=== PATIENT | male | born 1940 | race Caucasian/White ===

== ENCOUNTER → 2016-08-02 07:35 | Outpatient (CLI) | payer MEDICARE, BC | END | disposition home or self-care (01) | LOC: D.CT 07:35 | DX: R79.89 Other specified abnormal findings of blood chemistry (principal); R93.8 Abnormal findings on diagnostic imaging of other specified body structures ==

== ENCOUNTER 2020-09-12 14:18 | Inpatient (IN) | payer MEDICARE, OTHER ==
[~2020-09-12] VITALS: Ht 177.8 cm; Wt 99.3 kg
[2020-09-12] MEDS ORDERED: CARDURA2 MG PO (14:27)
[2020-09-12] MEDS ORDERED: TORSEMIDE20 MG PO (14:27)
[2020-09-12] MEDS ORDERED: DILTIAZEM 24HR120 M3 PO (14:27)
[2020-09-12 15:21] LABS: BASOPHILS 0.7 % (0-2); HEMATOCRIT 26.5 % (42.0-54.0); LYMPHOCYTES 24.4 % (15-50); MCH 29.2 pg (26.0-34.0); MCV 86.1 fL (80.0-100.0); MEAN PLATELET VOLUME 8.1 fL (7.4-10.4); MONOCYTES 4.9 % (2-11); PLATELET COUNT 130 10x3/uL (130-400); RBC 3.08 10x6/uL (4.20-6.10); RDW 14.2 % (11.5-14.5); WBC 5.3 10x3/uL (4.8-10.8)
[2020-09-12 15:35] LABS: ANION GAP 16.1 mmol/L (8-16); CALCIUM 8.9 mg/dL (8.5-10.1); CARBON DIOXIDE 22.5 mmol/L (21.0-32.0); CREATININE - SERUM 5.2 mg/dL (0.6-1.3); POTASSIUM - SERUM 5.6 mmol/L (3.5-5.1)
[2020-09-12 15:41] LABS: ALBUMIN 3.8 g/dL (3.4-5.0); BILIRUBIN - TOTAL 0.28 mg/dL (0.2-1.3); PROTEIN - SERUM 7.8 g/dL (6.4-8.2)
[2020-09-12 16:11] LABS: COMPLEMENT C4 28.3 mg/dL (17.4-52.2)
[2020-09-12 17:40] LABS: BACTERIA FEW HPF (<MOD); BILIRUBIN NEGATIVE (NEGATIVE); KETONE NEGATIVE mg/dL (< 1+); NITRITE NEGATIVE (NEGATIVE); PH 5.5 (5.0-8.0); UROBILINOGEN NORMAL mg/dL (< 2); WHITE CELLS - URINE 6 HPF (0-1)
[2020-09-12 18:13] VITALS: BP 152/62
--- NOTE | 2020-09-12 18:28 | NUR ---
NS INFUSION STOPPED IN ER AT 1850 AND CONT'D IN HOSPITAL
--- NOTE | 2020-09-12 18:45 | NUR ---
PT FROM ER VIA WHEELCHAIR, PT AAO X 4, RESP EVEN AND UNLABORED, NO DISTRESS NOTED, CL IN REACH, SR UP X 2.
[2020-09-13 00:52] VITALS: BP 146/68
[2020-09-13 02:48] VITALS: BP 146/69; BMI 30.6
[2020-09-13 04:30] LABS: CREATININE - URINE 54.9 mg/dL (30-125); PRO/CRE RATIO URINE 1.3 mg/g; PROTEIN - URINE 72.7 mg/dL (0.0-11.9)
[2020-09-13 05:20] VITALS: BP 140/70
[2020-09-13 06:58] LABS: INR 1.29 (0.85-1.17); PROTIME 14.9 SECONDS (11.6-15.0)
[2020-09-13 07:09] LABS: BASOPHILS 0.6 % (0-2); EOSINOPHILS 3.6 % (0-7); HEMATOCRIT 23.8 % (42.0-54.0); HEMOGLOBIN 8.1 g/dL (13.5-17.5); LYMPHOCYTES 29.7 % (15-50); MCH 29.6 pg (26.0-34.0); MCHC 34.1 g/dL (31.0-37.0); MCV 86.8 fL (80.0-100.0); MONOCYTES 6.6 % (2-11); NEUTROPHILS 59.5 % (40-80); PLATELET COUNT 105 10x3/uL (130-400); RBC 2.74 10x6/uL (4.20-6.10); RDW 14.1 % (11.5-14.5); WBC 4.9 10x3/uL (4.8-10.8)
[2020-09-13 07:14] LABS: ANION GAP 19.3 mmol/L (8-16); CALCIUM 8.4 mg/dL (8.5-10.1); CARBON DIOXIDE 18.9 mmol/L (21.0-32.0); CREATININE - SERUM 4.8 mg/dL (0.6-1.3); MAGNESIUM - SERUM 1.8 mg/dL (1.8-2.4); PHOSPHOROUS 5.4 mg/dL (2.5-4.9); POTASSIUM - SERUM 5.2 mmol/L (3.5-5.1)
--- NOTE | 2020-09-13 07:58 | NUR ---
AM ROUNDING DONE WITH FANNY STILL IN STREET CLOTHES, DOES NOT WANT TO PLACE GOWN ON UNTIL TIME FOR PROCEDURE. NPO STATUS AT THIS TIME. ON HEART MONITOR SHOWING SR, HR 70. RIGHT FA PIV SEEN WITH NS INFUSING AT 75 CC/HR, ORANGE SWAB CAPS IN PLACE. ON ROOM AIR. DENIES NEEDS AT THIS TIME. WILL MONITOR.
[2020-09-13 09:00] VITALS: BP 153/79
--- NOTE | 2020-09-13 10:16 | NUR ---
TO IR VIA BED.
--- NOTE | 2020-09-13 12:42 | NUR ---
NO BLEEDING AT BIOPSY SITE. PT VS STABLE 136/58, 71, 99% RA, 9 RESP. PT SLEEPING AT THIS TIME, BUT WILL RESPOND TO NAME. NO DISTRESS NOTED. WILL CONTINUE TO MONITOR.
--- NOTE | 2020-09-13 14:08 | NUR ---
1355- AAOX4. SUPINE. URINATED IN URINAL 80 ML OUTPUT. VS- 141/60 HR 79 RR 12 O2 SAT 98 ON ROOM AIR. DRESSING CLEAN. NO SWELLING OR DISCOLORATION NOTED AROUND BIOPSY SITE.
--- NOTE | 2020-09-13 15:17 | NUR ---
Resting quietly. Denies pain. No discoloration or swelling noted around biopsy site. 100 ml urine output. Breathing non labored. Skin PWD. VS-133/64 HR 78 RR 12 O2 sat 98 on RA.
--- NOTE | 2020-09-13 15:39 | NUR ---
transported to ops to continue monitoring and waiting on ICU room to become available.
--- NOTE | 2020-09-13 16:01 | NUR ---
PATIENT BROUGHT TO OUTPATIENT DEPARTMENT AWAITING ICU BED. ON ARRIVAL, PATIENT NAUSEATED, ZOFRAN GIVEN ORDERED
--- NOTE | 2020-09-13 16:02 | NUR ---
VS FOLLOWS ON ARRIVAL-125/98, 92. SAT 98% DRESSING DRY AND INTACT, NO BLEEDING NOTED
[2020-09-13 16:40] LABS: BASOPHILS 0.5 % (0-2); EOSINOPHILS 0.9 % (0-7); HEMATOCRIT 25.2 % (42.0-54.0); HEMOGLOBIN 8.5 g/dL (13.5-17.5); LYMPHOCYTES 13.6 % (15-50); MCH 29.2 pg (26.0-34.0); MCHC 33.8 g/dL (31.0-37.0); MCV 86.3 fL (80.0-100.0); MEAN PLATELET VOLUME 7.9 fL (7.4-10.4); MONOCYTES 4.6 % (2-11); NEUTROPHILS 80.4 % (40-80); PLATELET COUNT 124 10x3/uL (130-400); RBC 2.92 10x6/uL (4.20-6.10)
[2020-09-13 16:55] LABS: WBC 6.4 10x3/uL (4.8-10.8)
[2020-09-13 16:57] LABS: INR 1.28 (0.85-1.17); PROTIME 14.8 SECONDS (11.6-15.0)
--- NOTE | 2020-09-13 17:32 | NUR ---
RETURNS TO ROOM WITH DRY INTACT DRESSING TO BACK/RIGHT SIDE AREA. DENIES NEEDS.
[2020-09-13 17:51] VITALS: BP 148/64
--- NOTE | 2020-09-13 18:20 | NUR ---
LATE ENTRY: SEE BLOOD PRODUCT ADMINISTRATION SHEET FOR DETAIL OF PLATELET ADMINISTRATION THIS IS IN REFERENCE TO UNIT #1 [id number] PT TOLERATED WELL WITHOUT ANY DIFFICULTY
--- NOTE | 2020-09-13 18:23 | NUR ---
UNIT #2 OF PLATELET ADMINISTRATION SEE BLOOD PRODUCT ADMINISTRATION SHEET FOR DETAILS BEGAN ADMINISTRATION @ [id number]
--- NOTE | 2020-09-13 19:30 | NUR ---
PT IN BED, AAO X 4, RESP EVEN AND UNLABORED, NO DISTRESS NOTED, CL IN REACH, SR UP X 2, DRSG TO BACK CLEAN AND DRY AT THIS TIME.
[2020-09-13 21:11] LABS: BASOPHILS 0.4 % (0-2); EOSINOPHILS 0.7 % (0-7); HEMATOCRIT 22.8 % (42.0-54.0); HEMOGLOBIN 7.8 g/dL (13.5-17.5); LYMPHOCYTES 16.9 % (15-50); MCH 29.1 pg (26.0-34.0); MCHC 34.2 g/dL (31.0-37.0); MCV 85.3 fL (80.0-100.0); MEAN PLATELET VOLUME 7.3 fL (7.4-10.4); PLATELET COUNT 146 10x3/uL (130-400); RBC 2.67 10x6/uL (4.20-6.10); RDW 14.2 % (11.5-14.5); WBC 6.4 10x3/uL (4.8-10.8)
[2020-09-14] VITALS (9 sets, daily range): BP systolic 136–172; BP diastolic 59–88; Ht 177.8 cm; Wt 99.3 kg
--- NOTE | 2020-09-14 04:07 | NUR ---
I have reviewed this patient and I concur with the Shift Assessment completed by the Licensed Practical Nurse today this shift.
[2020-09-14 06:30] LABS: BASOPHILS 0.3 % (0-2); HEMATOCRIT 21.6 % (42.0-54.0); MCH 29.9 pg (26.0-34.0); MCHC 34.8 g/dL (31.0-37.0); MCV 86.1 fL (80.0-100.0); MEAN PLATELET VOLUME 8.6 fL (7.4-10.4); MONOCYTES 6.7 % (2-11); PLATELET COUNT 137 10x3/uL (130-400); RBC 2.51 10x6/uL (4.20-6.10); RDW 14.1 % (11.5-14.5); WBC 6.4 10x3/uL (4.8-10.8)
[2020-09-14 06:54] LABS: HEMOGLOBIN 7.5 g/dL (13.5-17.5)
[2020-09-14 06:57] LABS: % SATURATION 14 % (15-55); IRON 36 ug/dl (35-150); TOTAL IRON BIND CAPACITY 241 ug/dl (260-445); UNSAT IRON BIND CAPACITY 205 ug/dl (150-375)
[2020-09-14 07:00] LABS: ANION GAP 16.2 mmol/L (8-16); CALCIUM 8.5 mg/dL (8.5-10.1); CARBON DIOXIDE 21.7 mmol/L (21.0-32.0); CREATININE - SERUM 5.1 mg/dL (0.6-1.3); MAGNESIUM - SERUM 1.7 mg/dL (1.8-2.4); POTASSIUM - SERUM 4.9 mmol/L (3.5-5.1)
--- NOTE | 2020-09-14 08:50 | NUR ---
AM ROUNDING DONE WITH PATIENT RETURNING FROM CT VIA WHEELCHAIR. IV FLUIDS TO LEFT FA OF NS INFUSING AT 75 CC/HR. ON HEART MONITOR SHOWING SR, HR 99. ON ROOM AIR. DRESSING TO BACK IS C/D/I WITH NO BLEEDING SEEN. BILATERAL SCD'S ON AND IN USE. CALL LIGHT IN USE.
[2020-09-14 09:12] LABS: ANA REFLEX - DIRECT Negative (Negative)
--- NOTE | 2020-09-14 10:26 | NUR ---
FIRST UNIT OF BLOOD STARTED TRANSFUSING AT 100 CC/HR.
--- NOTE | 2020-09-14 12:40 | NUR ---
OT NOTE: ATTEMPTED EVAL HOWEVER PT GETTING BLOOD. WILL ATTEMPT LATER FRANKI KENDRICK, OTR/L
--- NOTE | 2020-09-14 12:57 | NUR ---
BLOOD TRANSFUSION COMPLETED WITH NO REACTION.
[2020-09-14 15:12] LABS: ANTIMYELOPEROXIDASE 42.2 U/mL (0.0-9.0); ANTIPROTEINASE 3 (PR-3) <3.5 U/mL (0.0-3.5)
[2020-09-14 18:55] LABS: HEMATOCRIT 24.8 % (42.0-54.0); HEMOGLOBIN 8.4 g/dL (13.5-17.5)
[2020-09-15 02:22] VITALS: BP 151/65
[2020-09-15 05:22] VITALS: BP 155/71
[2020-09-15 06:19] LABS: BASOPHILS 0.1 % (0-2); EOSINOPHILS 0.1 % (0-7); HEMATOCRIT 23.7 % (42.0-54.0); HEMOGLOBIN 8.3 g/dL (13.5-17.5); LYMPHOCYTES 7.5 % (15-50); MCH 30.2 pg (26.0-34.0); MCHC 34.9 g/dL (31.0-37.0); MCV 86.7 fL (80.0-100.0); MEAN PLATELET VOLUME 8.6 fL (7.4-10.4); MONOCYTES 1.3 % (2-11); PLATELET COUNT 121 10x3/uL (130-400); RBC 2.74 10x6/uL (4.20-6.10); RDW 14.2 % (11.5-14.5); WBC 7.7 10x3/uL (4.8-10.8)
[2020-09-15 08:23] LABS: ANION GAP 22.6 mmol/L (8-16); CALCIUM 8.4 mg/dL (8.5-10.1); CARBON DIOXIDE 16.3 mmol/L (21.0-32.0); CREATININE - SERUM 5.3 mg/dL (0.6-1.3); MAGNESIUM - SERUM 1.8 mg/dL (1.8-2.4); PHOSPHOROUS 5.2 mg/dL (2.5-4.9); POTASSIUM - SERUM 4.9 mmol/L (3.5-5.1)
[2020-09-15 09:25] VITALS: BP 146/59
[2020-09-15 11:26] VITALS: BP 165/74
[2020-09-15 15:12] LABS: ANCA - ANTIMYELOPEROXIDASE 23.5 U/mL (0.0-9.0); ANCA - ANTIPROTEINASE 3 <3.5 U/mL (0.0-3.5); ANCA - ATYPICAL <1:20 titer (Neg:<1:20); ANCA - CYTOPLASMIC <1:20 titer (Neg:<1:20)
[2020-09-15 20:51] VITALS: BP 132/49
[2020-09-16 01:50] VITALS: BP 121/35
[2020-09-16 05:41] VITALS: BP 139/89
[2020-09-16 08:34] LABS: BASOPHILS 0 % (0-2); EOSINOPHILS 0 % (0-7); HEMATOCRIT 24.5 % (42.0-54.0); HEMOGLOBIN 8.4 g/dL (13.5-17.5); LYMPHOCYTES 6.5 % (15-50); MCHC 34.2 g/dL (31.0-37.0); MCV 87.7 fL (80.0-100.0); MEAN PLATELET VOLUME 8.6 fL (7.4-10.4); NEUTROPHILS 91.5 % (40-80); PLATELET COUNT 128 10x3/uL (130-400); RBC 2.79 10x6/uL (4.20-6.10); RDW 14.4 % (11.5-14.5)
[2020-09-16 09:04] LABS: WBC 10.2 10x3/uL (4.8-10.8)
[2020-09-16 09:05] LABS: CALCIUM 8.1 mg/dL (8.5-10.1); CARBON DIOXIDE 17.7 mmol/L (21.0-32.0); CREATININE - SERUM 5.2 mg/dL (0.6-1.3); MAGNESIUM - SERUM 1.8 mg/dL (1.8-2.4); PHOSPHOROUS 5.4 mg/dL (2.5-4.9); POTASSIUM - SERUM 4.7 mmol/L (3.5-5.1)
[2020-09-16 09:11] VITALS: BP 138/61
[2020-09-16 16:39] VITALS: BP 132/64
--- NOTE | 2020-09-16 20:00 | NUR ---
ALERT/ORIENTED AND RESTING IN BED. SMILING, STATES TOLD HIM HE MAY GET TO GO HOME ON FRIDAY. DENIES PAIN OR DISCOMFORT. VERY PLEASANT TO INTERACT WITH. NONLABORED RESPIRATIONS ON ROOM AIR. IV TO RFA WITH NS @ 75ML/HR. SR PER TELEMETRY. CALL LIGHT IN REACH.
[2020-09-16 20:48] VITALS: BP 129/55
[2020-09-17 01:45] VITALS: BP 143/56
[2020-09-17 05:35] VITALS: BP 160/75
--- NOTE | 2020-09-17 06:00 | NUR ---
PT RESTING WELL THROUGH THE NIGHT. NO CHANGE FROM INITIAL SHIFT ASSESSMENT. IVF INFUSING. CALL LIGHT IN REACH.
[2020-09-17 07:41] LABS: BASOPHILS 0.1 % (0-2); EOSINOPHILS 0 % (0-7); HEMOGLOBIN 8.4 g/dL (13.5-17.5); LYMPHOCYTES 5.6 % (15-50); MCH 29.7 pg (26.0-34.0); MCHC 33.6 g/dL (31.0-37.0); MCV 88.4 fL (80.0-100.0); MEAN PLATELET VOLUME 8.7 fL (7.4-10.4); MONOCYTES 1.7 % (2-11); NEUTROPHILS 92.6 % (40-80); PLATELET COUNT 136 10x3/uL (130-400); RBC 2.83 10x6/uL (4.20-6.10); RDW 14.6 % (11.5-14.5); WBC 9.4 10x3/uL (4.8-10.8)
[2020-09-17 08:01] VITALS: BP 145/62
--- NOTE | 2020-09-17 08:01 | NUR ---
PT RECEIVED AWAKE AND ALERT, NO COMPLAINTS. HOPING TO GO HOME TODAY.
[2020-09-17 08:07] LABS: ANION GAP 20.8 mmol/L (8-16); CALCIUM 8.1 mg/dL (8.5-10.1); CARBON DIOXIDE 16.8 mmol/L (21.0-32.0); CREATININE - SERUM 5.1 mg/dL (0.6-1.3); MAGNESIUM - SERUM 1.8 mg/dL (1.8-2.4); PHOSPHOROUS 5.9 mg/dL (2.5-4.9); POTASSIUM - SERUM 4.6 mmol/L (3.5-5.1)
[2020-09-17] MEDS ORDERED: PREDNISONE20 MG PO (09:26)
[2020-09-17] MEDS ORDERED: PEPCID PO (09:26)
--- NOTE | 2020-09-17 10:25 | NUR ---
DISCHARGE INSTRUCTIONS REVIEWED AND SIGNED. FAMILY IN ROOM FOR TRANSPORT. IV REMOVED. TELEMETRY RETURNED TO ICU.
--- NOTE | 2020-09-17 19:13 | MORECARE ---
CASE MANAGEMENT DISCHARGE SUMMARY PATIENT: DUSTIN NELSON UNIT: [id number] ADM DATE: 09/12/20 AGE: 80 : 40 SEX: M ROOM/BED: D.2134 AUTHOR: KADEDOC PHYSICIAN: REFERRING PHYSICIAN: BELTRAN OROPEZA MD DATE OF SERVICE: 09/17/20 Case Management Discharge Planning Summary DCP REVIEW SUMMARY ANTICIPATED D/C DATE: 09/17/2020 EXPECTED LOS : 5 CASE STATUS: DCP Initiated INITIAL REVIEW: 09/12/2020 INITIAL REVIEWER: Kamari Brambila FINAL DISCHARGE DISPOSITION: : FINAL REVIEWER: FINAL REVIEW DATE: DCP Focus Questions & Answers DCP Evaluation QUESTION: ANSWER Patient gives permission to discuss discharge plans with: (name, relationship and number) : Antonietta pacheco, Patient's ability to cope with chronic illness : d. No chronic illness Patient's current cognitive status: : *Oriented to person, place, situation, time and present Family / Caregiver's ability to cope with chronic illness: : a. Adequate (ability to meet patient's medical needs, ensures patient attends medical appts.) Patient and/or caregiver agree upon recommended discharge plan? : Yes Physical Status: : Independent with ADL's Family / Caregiver's ability to cope with chronic illness: : a. Adequate (ability to meet patient's medical needs, ensures patient attends medical appts.) Functional screen assessment: : Basic needs can adequately be met by self Does the patient have the ability to pay for or attain post discharge needs / services? : Yes Living Arrangements: : Home with Spouse/Significant Other Is there a likelihood that the patient will require additional services to return to the preadmission environment? : No Equipment needed for post hospitalization: : None Baseline cognitive status: : *Oriented to person, place, situation, time and present Patient with capacity for self-care or can be cared for in same environment as prior to hospitalization? : Yes Physical environment modification needed / anticipated for discharge: : No Medication Management: : Patient states can afford medications Medication Management: : Patient states can read and understand medication labels Pharmacy name(s): : [facility] on [facility] Does Patient have transportation to get home and to follow-up medical appointments when discharged from the hospital? : Yes Would patient like to participate in any Care Coordination programs (if applicable): : Not applicable Does the patient have electricity at home? : Yes Does the patient have running water in their house? : Yes Equipment in use: : None Mental health screen: : No mental health history DCP Re-evaluation QUESTION: ANSWER Would patient like to participate in any Care Coordination programs (if applicable): : Not applicable PATIENT: DUSTIN NELSON ENCOUNTER: [id number] MEDICAL RECORD#: [id number] ADMISSION DATE: 09/12/2020 DISCHARGE DATE: 09/17/2020 ATTENDING MD: YARY: AGE: 80 MARITAL STATUS: M DC PLAN ID: [id number] FACILITY: [facility] PRINTED ON: 09/17/20 19:13 CT All edits/amendments must be made on the electronic document DICTATION DATE: 09/17/201912 BAKER BENCH: WILLIAM 09/17/201912 RPT#: [id number] DC DATE:09/17/20 STATUS: DIS IN [facility] [address] [place] [address] END OF REPORT
--- NOTE | 2020-09-17 19:24 | MORECARE ---
CASE MANAGEMENT DISCHARGE SUMMARY PATIENT: DUSTIN FLORENTINO UNIT: [id number] ADM DATE: 09/12/20 AGE: 80 : 40 SEX: M ROOM/BED: D.1474 AUTHOR: KADE,DOC PHYSICIAN: REFERRING PHYSICIAN: BELTRAN OROPEZA MD DATE OF SERVICE: 09/17/20 Case Management Discharge Planning Summary COMMENTS ENTERED DATE: 09/17/20 19:09 CT COMMENT TYPE: Discharge Planning REVIEWER: Kamari Brambila CM met with patient to complete DC plan and to evaluate needs. Patient lives independently with his , Antonietta Florentino, . Patient stated that his home is safe and has electricity and running water. Patient stated that he is able to manage entering his home and moving about without difficulty. Patient stated that he has no problems paying for medications and he fills his medications at [facility] on [facility]. Patient stated that his primary care physician is Dr. Hilliard. At discharge, the patient plans to return place and feels this is a safe discharge. CM discussed availability of home health, rehab services, and medical equipment. Patient declined HHS, SNF, IPR, and DME. Patient voiced no other needs at this time and is satisfied with DC plan. DC IMM delivered, explained, signed by the patient, and placed in chart. Signed form also left with the patient. CM will continue to follow and will assist as needed with dc plans/needs. MIP REVIEW SUMMARY ANTICIPATED D/C DATE: 09/17/2020 EXPECTED LOS : 5 CASE STATUS: DCP Initiated INITIAL REVIEW: 09/12/2020 INITIAL REVIEWER: Kamari Brambila FINAL DISCHARGE DISPOSITION: : FINAL REVIEWER: FINAL REVIEW DATE: MIP Focus Questions & Answers DCP Evaluation QUESTION: ANSWER Patient gives permission to discuss discharge plans with: (name, relationship and number) : , Antonietta Florentino, Patient's ability to cope with chronic illness : d. No chronic illness Patient's current cognitive status: : *Oriented to person, place, situation, time and present Family / Caregiver's ability to cope with chronic illness: : a. Adequate (ability to meet patient's medical needs, ensures patient attends medical appts.) Patient and/or caregiver agree upon recommended discharge plan? : Yes Physical Status: : Independent with ADL's Family / Caregiver's ability to cope with chronic illness: : a. Adequate (ability to meet patient's medical needs, ensures patient attends medical appts.) Functional screen assessment: : Basic needs can adequately be met by self Does the patient have the ability to pay for or attain post discharge needs / services? : Yes Living Arrangements: : Home with Spouse/Significant Other Is there a likelihood that the patient will require additional services to return to the preadmission environment? : No Equipment needed for post hospitalization: : None Baseline cognitive status: : *Oriented to person, place, situation, time and present Patient with capacity for self-care or can be cared for in same environment as prior to hospitalization? : Yes Physical environment modification needed / anticipated for discharge: : No Medication Management: : Patient states can afford medications Medication Management: : Patient states can read and understand medication labels Pharmacy name(s): : [facility] on [facility] Does Patient have transportation to get home and to follow-up medical appointments when discharged from the hospital? : Yes Would patient like to participate in any Care Coordination programs (if applicable): : Not applicable Does the patient have electricity at home? : Yes Does the patient have running water in their house? : Yes Equipment in use: : None Mental health screen: : No mental health history DCP Re-evaluation QUESTION: ANSWER Would patient like to participate in any Care Coordination programs (if applicable): : Not applicable PATIENT: DUSTIN FLORENTINO ENCOUNTER: [id number] MEDICAL RECORD#: [id number] ADMISSION DATE: 09/12/2020 DISCHARGE DATE: 09/17/2020 ATTENDING MD: YARY: AGE: 80 MARITAL STATUS: M DC PLAN ID: [id number] FACILITY: [facility] PRINTED ON: 09/17/20 19:23 CT All edits/amendments must be made on the electronic document DICTATION DATE: 09/17/201922 TWO NEEDLE MACHINE OPERATOR: WILLIAM 09/17/201922 RPT#: [id number] DC DATE:09/17/20 STATUS: DIS IN [facility] [address] [place] [address] END OF REPORT
--- NOTE | 2020-09-19 18:36 | MORECARE ---
CASE MANAGEMENT DISCHARGE SUMMARY PATIENT: DUSTIN FLORENTINO UNIT: [id number] ADM DATE: 09/12/20 AGE: 80 : 40 SEX: M ROOM/BED: D.2134 AUTHOR: KADE,DOC PHYSICIAN: REFERRING PHYSICIAN: BELTRAN OROPEZA MD DATE OF SERVICE: 09/19/20 Case Management Discharge Planning Summary COMMENTS ENTERED DATE: 09/17/20 19:09 CT COMMENT TYPE: Discharge Planning REVIEWER: Kamari Brambila CM met with patient to complete DC plan and to evaluate needs. Patient lives independently with his , Antonietta Florentino, . Patient stated that his home is safe and has electricity and running water. Patient stated that he is able to manage entering his home and moving about without difficulty. Patient stated that he has no problems paying for medications and he fills his medications at [facility] on [facility]. Patient stated that his primary care physician is Dr. Hilliard. At discharge, the patient plans to return place and feels this is a safe discharge. CM discussed availability of home health, rehab services, and medical equipment. Patient declined HHS, SNF, IPR, and DME. Patient voiced no other needs at this time and is satisfied with DC plan. DC IMM delivered, explained, signed by the patient, and placed in chart. Signed form also left with the patient. CM will continue to follow and will assist as needed with dc plans/needs. DCP REVIEW SUMMARY ANTICIPATED D/C DATE: 09/17/2020 EXPECTED LOS : 5 CASE STATUS: DCP Initiated INITIAL REVIEW: 09/12/2020 INITIAL REVIEWER: Kamari Brambila FINAL DISCHARGE DISPOSITION: : FINAL REVIEWER: FINAL REVIEW DATE: DCP Focus Questions & Answers DCP Evaluation QUESTION: ANSWER Patient and/or caregiver agree upon recommended discharge plan? : Yes Family / Caregiver's ability to cope with chronic illness: : a. Adequate (ability to meet patient's medical needs, ensures patient attends medical appts.) Patient's current cognitive status: : *Oriented to person, place, situation, time and present Patient's ability to cope with chronic illness : d. No chronic illness Patient gives permission to discuss discharge plans with: (name, relationship and number) : , Antonietta Florentino, Does the patient have the ability to pay for or attain post discharge needs / services? : Yes Functional screen assessment: : Basic needs can adequately be met by self Family / Caregiver's ability to cope with chronic illness: : a. Adequate (ability to meet patient's medical needs, ensures patient attends medical appts.) Physical Status: : Independent with ADL's Equipment needed for post hospitalization: : None Is there a likelihood that the patient will require additional services to return to the preadmission environment? : No Living Arrangements: : Home with Spouse/Significant Other Patient with capacity for self-care or can be cared for in same environment as prior to hospitalization? : Yes Baseline cognitive status: : *Oriented to person, place, situation, time and present Physical environment modification needed / anticipated for discharge: : No Medication Management: : Patient states can read and understand medication labels Medication Management: : Patient states can afford medications Pharmacy name(s): : [facility] on [facility] Does Patient have transportation to get home and to follow-up medical appointments when discharged from the hospital? : Yes Would patient like to participate in any Care Coordination programs (if applicable): : Not applicable Does the patient have electricity at home? : Yes Does the patient have running water in their house? : Yes Equipment in use: : None Mental health screen: : No mental health history DCP Re-evaluation QUESTION: ANSWER Would patient like to participate in any Care Coordination programs (if applicable): : Not applicable PATIENT: DUSTIN FLORENTINO ENCOUNTER: [id number] MEDICAL RECORD#: [id number] ADMISSION DATE: 09/12/2020 DISCHARGE DATE: 09/17/2020 ATTENDING MD: YARY: AGE: 80 MARITAL STATUS: M DC PLAN ID: [id number] FACILITY: [facility] PRINTED ON: 09/19/20 18:36 CT All edits/amendments must be made on the electronic document DICTATION DATE: 09/19/201835 OFFICE SERVICE COORDINATOR: WILLIAM 09/19/201835 RPT#: [id number] DC DATE:09/17/20 STATUS: DIS IN [facility] [address] [place] [address] END OF REPORT
== END 2020-09-17 10:26 | disposition home or self-care (01) | DRG 299 ==
LOC: D.ER 14:18 → D.M2 17:21 → D.EDHOLD 17:21 → D.M2 17:38
PROVIDERS: Emergency Medicine; Family Medicine; General Practice; Internal Medicine Nephrology; ADMIT Family Medicine; ATTEND Family Medicine
PROC: 0TB03ZX Excision of Right Kidney, Percutaneous Approach, Diagnostic (ICD-10-PCS; principal; 2020-09-13 10:30)
DX: I77.89 Other specified disorders of arteries and arterioles (principal); K66.1 Hemoperitoneum; N17.9 Acute kidney failure, unspecified; I12.9 Hypertensive chronic kidney disease with stage 1 through stage 4 chronic kidney disease, or unspecified chronic kidney disease; N18.9 Chronic kidney disease, unspecified; E87.5 Hyperkalemia; D64.9 Anemia, unspecified; E11.22 Type 2 diabetes mellitus with diabetic chronic kidney disease